=== PATIENT | female | born 1970 | race Asian ===

== ENCOUNTER → 2019-10-30 | Outpatient (CLI) | payer OTHER ==
[2019-10-31 04:14] LABS: RUBELLA AB IGG-REFLAB 3.06 index (Immune >0.99); RUBEOLA (MEASLES) IGG 47.1 AU/mL (Immune >16.4)
== END | disposition home or self-care (01) ==
LOC: EMPHLTH 11:06
PROVIDERS: ATTEND Internal Medicine
DX: Z02.1 Encounter for pre-employment examination (principal)
CPT/HCPCS: 86706; 86735; 86762; 86765; 86787

== ENCOUNTER → 2021-09-28 | Outpatient (CLI) | payer OTHER ==
[2021-09-29 05:07] LABS: RUBELLA AB IGG-REFLAB 2.81 index (Immune >0.99)
[2021-09-29 10:07] LABS: RUBEOLA (MEASLES) IGG 36.1 AU/mL (Immune >16.4)
== END | disposition home or self-care (01) ==
LOC: LABMN 10:21
PROVIDERS: ATTEND Internal Medicine
DX: Z02.1 Encounter for pre-employment examination (principal)
CPT/HCPCS: 86706; 86735; 86762; 86765; 86787